=== PATIENT | male | born 1960 | race Caucasian/White ===

== ENCOUNTER 2019-02-18 18:07 | Inpatient (IN) ==
[2019-02-18 19:30] LABS: Basophils # 0.1 10*3/uL (0.0-0.2); Basophils % 0.6 % (0.0-0.8); Eosinophils % 0.3 % (0.00-10.9); Hematocrit 51.4 VOL% (42.0-52.0); Hemoglobin 16.2 GM/DL (14.0-18.0); Immature Granulocytes % 0.3 %; Immature Granulocytes Absolute 0.03 #; Lymphocytes # 2.2 10*3/uL (1.4-4.0); Lymphocytes % 25.2 % (21.2-54.2); Mean Corpuscular HGB Conc 31.5 GM/DL (32-36); Mean Corpuscular Hemoglobin 30 PG (27-34); Mean Corpuscular Volume 96.4 FL (87-102); Mean Platelet Volume 9.4 FL (9.6-12.0); Monocytes % 11.6 % (1.7-12.7); NRBC # 0.04 10*3/uL; Neutrophils # 5.5 10*3/uL (1.4-7.4); Platelet Count 332 T/CUMM (130-400); Red Blood Count 5.33 MC/CUMM (3.8-5.5); Red Cell Distribution Width 15.9 % (9.3-17.3); White Blood Count 8.9 T/CUMM (4-12)
[2019-02-18 19:40] LABS: INR 2.1; PT Patient Result 22.9 SECS; Partial Thromboplastin Time 28.4 SECS (0-40)
[2019-02-18 19:50] LABS: Bilirubin,Total 1.9 MG/DL (0.2-1.0); Calcium 9.2 MG/DL (8.5-10.1); Osmolality,Calculated 271.2 MOS/KG (273-304); Potassium 5.5 MMOL/L (3.5-5.1); Total Protein 8.1 G/DL (6.4-8.3)
[2019-02-18] MEDS ORDERED: FUROSEMIDE 40 MG/4 ML VIAL IV STA (20:55)
[2019-02-18 21:41] LABS: Albumin 3.7 G/DL (3.4-5.0); Bilirubin,Direct 0.71 MG/DL (0.0-0.20); Bilirubin,Total 1.7 MG/DL (0.2-1.0); Total Protein 7.8 G/DL (6.4-8.3)
[2019-02-18 23:24] LABS: Apearance,Urine CLEAR (Clear); Bilirubin,Urine Negative (Negative); Blood, Urine Negative (Negative); Glucose,Urine (UA) Negative (Negative); Hyaline Casts,Urine 4 /LPF (0-3); Ketones,Urine Negative (Negative); Mucus,Urine Occasional /LPF (Occasional); Nitrite,Urine Negative (Negative); Protein,Urine Negative; RBC,Urine <1 /HPF (0-4); Squamous Epithelial Cell,Urine Occasional /HPF (0-10); Urine Color Yellow (Yellow); Urine Specific Gravity 1.011 (1.001-1.035); Urine Urobilinogen < 2.0 EU/DL (0.2-1.0); WBC,Urine <1 /HPF (0-6)
[2019-02-18 23:39] LABS: Barbiturates Screen,Urine Negative (Negative); Benzodiazepines Screen,Urine Negative (Negative); Cannabinoid Screen,Urine Negative (Negative); Opiate Screen,Urine Negative (Negative); Phencyclidine Screen,Urine Negative (Negative)
[2019-02-19] MEDS: LACTULOSE 20 GM/30 ML UDCUP PO SCH ×2 (00:07→06:11)
[2019-02-19 05:14] LABS: Basophils # 0.1 10*3/uL (0.0-0.2); Basophils % 0.9 % (0.0-0.8); Eosinophils # 0.1 10*3/uL (0.0-0.87); Eosinophils % 0.5 % (0.00-10.9); Hemoglobin 15.4 GM/DL (14.0-18.0); Immature Granulocytes % 0.5 %; Immature Granulocytes Absolute 0.05 #; Lymphocytes # 2.2 10*3/uL (1.4-4.0); Lymphocytes % 24.5 % (21.2-54.2); Mean Corpuscular HGB Conc 31.4 GM/DL (32-36); Mean Corpuscular Hemoglobin 30 PG (27-34); Mean Corpuscular Volume 95.3 FL (87-102); Mean Platelet Volume 9.7 FL (9.6-12.0); Monocytes # 1.2 10*3/uL (0.11-0.8); Monocytes % 13.2 % (1.7-12.7); NRBC # 0.06 10*3/uL; Neutrophils # 5.5 10*3/uL (1.4-7.4); Neutrophils % 60.4 % (38.7-73.9); Platelet Count 302 T/CUMM (130-400); Red Blood Count 5.14 MC/CUMM (3.8-5.5); Red Cell Distribution Width 15.7 % (9.3-17.3); White Blood Count 9.2 T/CUMM (4-12)
[2019-02-19 05:48] LABS: Albumin 3.5 G/DL (3.4-5.0); Bilirubin,Total 1.6 MG/DL (0.2-1.0); Calcium 8.9 MG/DL (8.5-10.1); Osmolality,Calculated 273.1 MOS/KG (273-304); Potassium 4.5 MMOL/L (3.5-5.1); Risk Ratio 4.73; Thyroid Stimulating Hormone 4.15 uIU/ml (0.358-3.74); Total Protein 7.4 G/DL (6.4-8.3); VLDL CHOLESTEROL 13.6 MG/DL
[2019-02-19 06:16] LABS: HIV Antigen/Antibody Result Nonreactive (Nonreactive)
[2019-02-19] MEDS ORDERED: LACTULOSE 20 GM/30 ML UDCUP PO PRN (10:31)
[2019-02-19 11:27] LABS: Hepatitis A Ab IgM Result Negative (Negative); Hepatitis B Core IgM Quant 0.12 Index; Hepatitis B Core IgM Result Negative (Negative); Hepatitis B Surface Ag Quant < 0.10 Index; Hepatitis B Surface Ag Result Negative (Negative); Hepatitis C Virus Ab Quant 0.05 Index; Hepatitis C Virus Ab Result Negative (Negative)
[2019-02-19] MEDS: NICOTINE 21 MG/24 HR PATCH TRANSDERM SCH (11:28)
[2019-02-19] MEDS: FUROSEMIDE 20 MG/2 ML VIAL IV SCH (16:29)
[2019-02-19 17:34] LABS: Troponin I 0.107 NG/ML (0.00-0.045)
[2019-02-19] MEDS: CARVEDILOL 3.125 MG TABLET PO SCH (21:42)
[2019-02-19] MEDS: diphenhydrAMINE CAP 25 MG CAPSULE PO PRN (21:42)
[2019-02-19] MEDS: CAPTOPRIL 6.25 MG TABLET PO SCH (22:49)
[2019-02-20 04:33] LABS: INR 1.8; PT Patient Result 19.1 SECS; Partial Thromboplastin Time 28.4 SECS (0-40)
[2019-02-20 04:39] LABS: Basophils % 0.6 % (0.0-0.8); Eosinophils # 0.1 10*3/uL (0.0-0.87); Eosinophils % 0.7 % (0.00-10.9); Hematocrit 47.2 VOL% (42.0-52.0); Hemoglobin 14.8 GM/DL (14.0-18.0); Immature Granulocytes % 0.1 %; Immature Granulocytes Absolute 0.01 #; Lymphocytes # 1.5 10*3/uL (1.4-4.0); Lymphocytes % 21.5 % (21.2-54.2); Mean Corpuscular HGB Conc 31.4 GM/DL (32-36); Mean Corpuscular Hemoglobin 30 PG (27-34); Mean Corpuscular Volume 96.7 FL (87-102); Mean Platelet Volume 9.7 FL (9.6-12.0); Monocytes # 0.7 10*3/uL (0.11-0.8); Monocytes % 10.2 % (1.7-12.7); NRBC # 0.09 10*3/uL; Neutrophils # 4.6 10*3/uL (1.4-7.4); Neutrophils % 66.9 % (38.7-73.9); Platelet Count 260 T/CUMM (130-400); Red Blood Count 4.88 MC/CUMM (3.8-5.5); White Blood Count 6.9 T/CUMM (4-12)
[2019-02-20 04:46] LABS: Albumin 3.2 G/DL (3.4-5.0); Bilirubin,Total 1.6 MG/DL (0.2-1.0); Calcium 8.5 MG/DL (8.5-10.1); Potassium 4.6 MMOL/L (3.5-5.1); Total Protein 7.1 G/DL (6.4-8.3)
[2019-02-20] MEDS: CAPTOPRIL 6.25 MG TABLET PO SCH (08:32)
[2019-02-20] MEDS: FUROSEMIDE 20 MG/2 ML VIAL IV SCH (08:33)
[2019-02-20] MEDS: CARVEDILOL 3.125 MG TABLET PO SCH ×2 (08:33→16:26)
[2019-02-20] MEDS: NICOTINE 21 MG/24 HR PATCH TRANSDERM SCH (08:33)
[2019-02-20] MEDS ORDERED: ZALEPLON 5 MG CAPSULE PO PRN (12:24)
[2019-02-20] MEDS ORDERED: LACTULOSE 20 GM/30 ML UDCUP PO ONE (12:30)
[2019-02-20] MEDS: guaiFENesin 200 MG/10 ML UDCUP PO PRN (12:40)
[2019-02-20] MEDS ORDERED: ENALAPRIL 2.5 MG TABLET PO SCH (15:00)
[2019-02-20] MEDS: FUROSEMIDE 40 MG/4 ML VIAL IV SCH (16:25)
[2019-02-20] MEDS: ASPIRIN EC 81 MG TABLET PO SCH (16:26)
[2019-02-20] MEDS: CARVEDILOL 6.25 MG TABLET PO SCH (19:24)
[2019-02-20] MEDS: ENALAPRIL 5 MG TABLET PO SCH (21:07)
[2019-02-20] MEDS: traZODone 50 MG TABLET PO SCH (21:08)
[2019-02-21] MEDS: FUROSEMIDE 40 MG/4 ML VIAL IV SCH (08:41)
[2019-02-21] MEDS: NICOTINE 21 MG/24 HR PATCH TRANSDERM SCH (08:41)
[2019-02-21] MEDS: ENALAPRIL 5 MG TABLET PO SCH ×2 (08:42→20:28)
[2019-02-21] MEDS: ASPIRIN EC 81 MG TABLET PO SCH (08:42)
[2019-02-21] MEDS: CARVEDILOL 6.25 MG TABLET PO SCH ×2 (08:43→18:15)
[2019-02-21] MEDS: guaiFENesin 200 MG/10 ML UDCUP PO PRN (09:00)
[2019-02-21 12:43] LABS: Albumin 3.1 G/DL (3.4-5.0); Bilirubin,Direct 0.46 MG/DL (0.0-0.20); Bilirubin,Indirect 0.4 MG/DL (0.0-1.0); Bilirubin,Total 0.9 MG/DL (0.2-1.0); Total Protein 6.7 G/DL (6.4-8.3)
[2019-02-21] MEDS: traZODone 50 MG TABLET PO SCH (20:27)
[2019-02-22] MEDS: diphenhydrAMINE CAP 25 MG CAPSULE PO PRN (01:33)
[2019-02-22 05:33] LABS: Basophils % 0.6 % (0.0-0.8); Eosinophils # 0.1 10*3/uL (0.0-0.87); Eosinophils % 1.7 % (0.00-10.9); Hematocrit 47.3 VOL% (42.0-52.0); Hemoglobin 14.6 GM/DL (14.0-18.0); Immature Granulocytes % 0.3 %; Immature Granulocytes Absolute 0.02 #; Lymphocytes # 1.6 10*3/uL (1.4-4.0); Lymphocytes % 24.9 % (21.2-54.2); Mean Corpuscular HGB Conc 30.9 GM/DL (32-36); Mean Corpuscular Hemoglobin 30 PG (27-34); Mean Corpuscular Volume 98.3 FL (87-102); Mean Platelet Volume 9.7 FL (9.6-12.0); Monocytes # 0.6 10*3/uL (0.11-0.8); Monocytes % 9.7 % (1.7-12.7); NRBC # 0.03 10*3/uL; Neutrophils % 62.8 % (38.7-73.9); Platelet Count 219 T/CUMM (130-400); Red Blood Count 4.81 MC/CUMM (3.8-5.5); Red Cell Distribution Width 16.6 % (9.3-17.3); White Blood Count 6.4 T/CUMM (4-12)
[2019-02-22 05:42] LABS: Calcium 8.4 MG/DL (8.5-10.1); Osmolality,Calculated 279.7 MOS/KG (273-304); Potassium 3.9 MMOL/L (3.5-5.1)
[2019-02-22] MEDS: POLYETHYLENE GLYCOL POWDER 17 GM PACK PO SCH (08:26)
[2019-02-22] MEDS: FUROSEMIDE 40 MG/4 ML VIAL IV SCH (08:26)
[2019-02-22] MEDS: NICOTINE 21 MG/24 HR PATCH TRANSDERM SCH (08:26)
[2019-02-22] MEDS: ASPIRIN EC 81 MG TABLET PO SCH (08:27)
[2019-02-22] MEDS: guaiFENesin 200 MG/10 ML UDCUP PO PRN (08:27)
[2019-02-22] MEDS: CARVEDILOL 6.25 MG TABLET PO SCH ×2 (08:48→17:27)
[2019-02-22] MEDS: ENALAPRIL 5 MG TABLET PO SCH (08:49)
[2019-02-22 11:07] LABS: Albumin 3.1 G/DL (3.4-5.0); Bilirubin,Direct 0.36 MG/DL (0.0-0.20); Bilirubin,Indirect 0.3 MG/DL (0.0-1.0); Bilirubin,Total 0.7 MG/DL (0.2-1.0); Total Protein 6.7 G/DL (6.4-8.3)
[2019-02-22] MEDS: ALBUTEROL/IPRATROPIUM 3 ML NEB RESP TX PRN ×2 (13:47→18:59)
[2019-02-22] MEDS: traZODone 50 MG TABLET PO SCH (21:13)
[2019-02-23] MEDS: ALBUTEROL/IPRATROPIUM 3 ML NEB RESP TX PRN (04:37)
[2019-02-23 06:27] LABS: Basophils # 0.1 10*3/uL (0.0-0.2); Basophils % 0.8 % (0.0-0.8); Eosinophils # 0.1 10*3/uL (0.0-0.87); Eosinophils % 1.9 % (0.00-10.9); Hematocrit 46.9 VOL% (42.0-52.0); Hemoglobin 14.8 GM/DL (14.0-18.0); Immature Granulocytes % 0.2 %; Immature Granulocytes Absolute 0.01 #; Lymphocytes # 1.8 10*3/uL (1.4-4.0); Lymphocytes % 27.5 % (21.2-54.2); Mean Corpuscular HGB Conc 31.6 GM/DL (32-36); Mean Corpuscular Hemoglobin 31 PG (27-34); Mean Corpuscular Volume 96.9 FL (87-102); Mean Platelet Volume 10.2 FL (9.6-12.0); Monocytes # 0.6 10*3/uL (0.11-0.8); Monocytes % 9.5 % (1.7-12.7); Neutrophils # 3.8 10*3/uL (1.4-7.4); Neutrophils % 60.1 % (38.7-73.9); Platelet Count 229 T/CUMM (130-400); Red Blood Count 4.84 MC/CUMM (3.8-5.5); Red Cell Distribution Width 16.8 % (9.3-17.3); White Blood Count 6.4 T/CUMM (4-12)
[2019-02-23 06:35] LABS: Calcium 8.3 MG/DL (8.5-10.1); Potassium 3.8 MMOL/L (3.5-5.1)
[2019-02-23 06:51] LABS: Albumin 3.1 G/DL (3.4-5.0); Bilirubin,Direct 0.33 MG/DL (0.0-0.20); Bilirubin,Indirect 1.3 MG/DL (0.0-1.0); Bilirubin,Total 1.6 MG/DL (0.2-1.0); Total Protein 6.9 G/DL (6.4-8.3)
[2019-02-23] MEDS ORDERED: FUROSEMIDE 40 MG TABLET PO SCH (09:00)
[2019-02-23] MEDS ORDERED: ENALAPRIL 5 MG TABLET PO SCH (09:00)
[2019-02-23] MEDS: ASPIRIN EC 81 MG TABLET PO SCH (09:28)
[2019-02-23] MEDS: CARVEDILOL 6.25 MG TABLET PO SCH (09:28)
[2019-02-23] MEDS: POLYETHYLENE GLYCOL POWDER 17 GM PACK PO SCH (09:29)
[2019-02-23] MEDS: NICOTINE 21 MG/24 HR PATCH TRANSDERM SCH (09:29)
[2019-02-23 12:02] VITALS: BP 91/66
== END 2019-02-23 13:30 | disposition home or self-care (01) | DRG 291 ==
LOC: N.ED 18:07 → SUATTDRO 22:00 → N.EDINP 22:00 → N.2E 23:04
PROVIDERS: ADMIT Internal Medicine; ATTEND Internal Medicine